=== PATIENT | male | born 2000 | race Caucasian/White ===

== ENCOUNTER → 2018-07-06 | Outpatient (CLI) | payer OTHER ==
[2018-06-28 14:22] VITALS: BP 94/62
--- NOTE | 2018-07-06 12:46 | RAD ---
CT HEAD WO CONTRAST History: Subdural hematoma Comparison: June 28, 2018 and June 26, 2018 exam Technique: Noncontrast CT imaging was performed of the head. Exposure: One or more of the following individualized dose reduction techniques were utilized for this examination: 1. Automated exposure control 2. Adjustment of the mA and/or kV according to patient size 3. Use of iterative reconstruction technique. Findings: Previously seen within hyperdensity in the right temporal region laterally is overall unchanged in appearance in greatest transverse thickness about 0.3 cm although only well visualized on one image. No new intracranial hemorrhage or mass effect is identified. Ventricular size is stable, within normal limits. Mastoid air cells and visualized paranasal sinuses are aerated. There is a small right ronda bullosa. Impression: 1. Thin focus of hyperdensity along the right convexity in the temporal region is stable although only well well seen on one image. Given this is only seen on one image, this may be artifactual, could be more definitively evaluated with MRI if clinically needed. Electronically signed by: Nawaf Francisco MD (07/06/2018 12:43 PM) [id number]
== END | disposition home or self-care (01) ==
LOC: CT 10:43
PROVIDERS: ATTEND Neurological Surgery
DX: S06.5X0A Traumatic subdural hemorrhage without loss of consciousness, initial encounter (principal); X58.XXXA Exposure to other specified factors, initial encounter; Y93.89 Activity, other specified; Y92.89 Other specified places as the place of occurrence of the external cause; Y99.8 Other external cause status
CPT/HCPCS: 70450